=== PATIENT | female | born 1970 | race Two or more races ===

== ENCOUNTER 2017-02-06 15:21 | Emergency (ER) | payer SELFPAY ==
[~2017-02-06] VITALS: Ht 162.6 cm; Wt 63.5 kg
[2017-02-06 15:25] VITALS: BP 126/84
--- NOTE | 2017-02-06 16:07 | PHYS DOC ---
Past Medical History Past Medical History: No Pertinent History Past Surgical History: No Surgical History Alcohol Use: Occasionally Drug Use: None Adult General Chief Complaint Chief Complaint: NEURO SYMPTOMS/DEFICITS [facility] Patient is a 46 year old patient has good equal strength and all extremities. Patient states that she has had numbness and tingling in the left elbow down to her hand as well as in the left hip area. Patient states that she had gone out drinking last night and was woke up in the middle the night with the pain and discomfort. Patient states that this is happened one time previous after going out drinking and dancing as well. Patient denies any injuries or any trauma. He has taken one dose of ibuprofen with no relief. Peripheral pulses are 2+ cap refill brisk less than 2 seconds. Patient is right hand dominant. Review of Systems Review of Systems Constitutional: Denies fever or chills [] Eyes: Denies change in visual acuity, redness, or eye pain [] HENT: Denies nasal congestion or sore throat [] Respiratory: Denies cough or shortness of breath [] Cardiovascular: No additional information not addressed in HPI [] GI: Denies abdominal pain, nausea, vomiting, bloody stools or diarrhea [] : Denies dysuria or hematuria [] Musculoskeletal: Denies back pain. C/o left elbow and left hip pain Integument: Denies rash or skin lesions [] Neurologic: Denies headache, focal weakness or sensory changes [] Allergies Allergies Allergies Coded Allergies Type Severity Reaction Last Updated Verified No Known Drug Allergies 02/06/17 No Physical Exam Physical Exam Constitutional: Well developed, well nourished, no acute distress, non-toxic appearance. [] HENT: Normocephalic, atraumatic, bilateral external ears normal, oropharynx moist, no oral exudates, nose normal. [] Eyes: PERRLA, EOMI, conjunctiva normal, no discharge. [] Neck: Normal range of motion, no tenderness, supple, no stridor. [] Cardiovascular:Heart rate regular rhythm Lungs & Thorax: no respiratory distress Skin: Warm, dry, no erythema, no rash. [] Back: No tenderness Extremities: Left elbow and left hip tenderness, no cyanosis, no clubbing, ROM intact, no edema. Patient was noted to have equal strength to extremities. Peripheral pulses 2+ cap refill brisk less than 2 seconds. Good sensation noted to extremities. Neurologic: Alert and oriented X 3, normal motor function, normal sensory function, no focal deficits noted. [] Psychologic: Affect normal, judgement normal, mood normal. [] Current Patient Data Vital Signs Vital Signs Date Time Temp Pulse Resp B/P Pulse Ox O2 Delivery O2 Flow Rate FiO2 02/06/17 15:25 98.1 92 20 126/84 98 Room Air 98.1 EKG EKG [] Radiology/Procedures Radiology/Procedures [] Course & Med Decision Making Course & Med Decision Making Pertinent Labs and Imaging studies reviewed. (See chart for details) Spoke with patient in regards to over usage or strain with activity that was completed during the evening before. Also recommended patient to take ibuprofen 800 mg every 8 hours with food. Recommended ice packs and elevation. Will be placed in a sling to decrease the use. Patient discharged home in stable condition. The be provided with orthopedic name and number to follow up with. Signs and symptoms to return back to emergency department provided. HPI and discharge instructions obtained from senior piping designer at bedside as patient speaks czech only. [] Dragon Disclaimer Dragon Disclaimer This electronic medical record was generated, in whole or in part, using a voice recognition dictation system. Departure Departure Impression: Primary Impression: Left elbow pain Additional Impression: Left hip pain Disposition: 01 HOME, SELF-CARE Condition: STABLE Patient Instructions: Hip Pain, Tennis Elbow, [id number] Additional Instructions: Home to rest Wear the sling to decrease over use. Ice packs on 20 minutes and of 20 minutes several times a day Ibuprofen 800 mg every 8 hours with food stop taking if you develop upset stomach Followup with orthopedic in 1 week Return to emergency department as needed for signs and symptoms that become worse. Problem Qualifiers KODY FUCHS ANVILSMITH Feb 06, 2017 16:07
== END 2017-02-06 16:22 | disposition home or self-care (01) ==
LOC: ER 15:21
DX: M25.522 Pain in left elbow (principal); M25.552 Pain in left hip
CPT/HCPCS: 99282